=== PATIENT | male | born 1960 | race Caucasian/White ===

== ENCOUNTER → 2023-08-09 | Outpatient (CLI) | payer OTHER ==
--- NOTE | 2023-08-09 21:29 | XR ---
EXAMINATION TYPE: XR lumbar spine 3V DATE OF EXAM: 08/09/2023 Comparison: None Clinical History: 63-year-old male M54.42 LUMBAGO WITH SCIATICA, LEFT SIDE Findings: 5 lumbar type vertebral bodies. Osteopenia. 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 Mild multile to degenerative disc disease, more mild to moderate at L5-S1 with disc space narrowing. Alignment is maintained. Impression: No vertebral compression collapse or malalignment. 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
== END | disposition home or self-care (01) ==
LOC: RADXRMAIN 10:46
PROVIDERS: ATTEND Family Medicine
DX: M47.27 Other spondylosis with radiculopathy, lumbosacral region (principal); M51.17 Intervertebral disc disorders with radiculopathy, lumbosacral region
CPT/HCPCS: 72100

== ENCOUNTER → 2025-01-06 | Outpatient (CLI) | payer OTHER ==
--- NOTE | 2025-01-06 17:24 | XR ---
EXAMINATION TYPE: XR chest 2V DATE OF EXAM: 01/06/2025 9:37 AM COMPARISON: None. CLINICAL INDICATION: Male, 64 years old with history of R06.89 OTHER ABNORMALITIES OF BREATHING, TECHNIQUE: XR chest 2V view(s) obtained. FINDINGS: The heart size is normal. The pulmonary vasculature is normal. The lungs are clear. IMPRESSION: 1. No acute pulmonary process. [facility], Workstation: [facility], 01/06/2025 5:21 PM
== END | disposition home or self-care (01) ==
LOC: RADXRMAIN 09:17
PROVIDERS: ATTEND Family Medicine
DX: R06.89 Other abnormalities of breathing (principal)
CPT/HCPCS: 71046